=== PATIENT | female | born 1980 | race Caucasian/White ===

== ENCOUNTER 2019-06-30 10:58 | Outpatient (CLI) | payer OTHER, SELFPAY ==
--- NOTE | 2019-06-30 11:09 | EST_ITS ---
Patient Info Name: Lauren Hicks Age: 38 years : 1980 Gender: Female Ht: 64 in Wt: 180 lbs BSA: 1.95 m2 Exam Date: 06/30/2019 11:42 AM Exam Location: [facility] Stress Patient Status: Outpatient Admit Date: 06/30/2019 Staff Ordering Physician: Emmett Turner DO Attending Provider: Emmett Turner DO Exercise Technologist: Vera Fernando RDCS Exercise Physician: Emmett Turner DO Exam Type: CA stress test treadmill Study Info A treadmill exercise stress test was performed. Summary 1. 1. Negative Spenser exercise stress test for ischemic ST changes by ECG criteria. 2. 2. Good functional capacity, achieving 9 METs of workload. 3. 3. Appropriate HR response to exercise. 4. 4. Appropriate HR recovery at 1 minute post exercise. 5. 5. No imaging with stress testing. 6. 6. Patient informed of the above results. Protocol: Spenser Stress ECG Details Stage: REST Duration (min): 8 min : 10 sec Speed (mph): 0.0 Grade (%): 0 HR (bpm): 77 SBP (mmHg): 123 DBP (mmHg): 78 METS: --- Stage: REST Duration (min): 11 min : 1 sec Speed (mph): 0.0 Grade (%): 0 HR (bpm): 84 SBP (mmHg): 123 DBP (mmHg): 78 METS: --- Stage: STAGE 1 Duration (min): 1 min : 0 sec Speed (mph): 1.7 Grade (%): 10 HR (bpm): 111 SBP (mmHg): 123 DBP (mmHg): 78 METS: --- Stage: STAGE 1 Duration (min): 2 min : 0 sec Speed (mph): 1.7 Grade (%): 10 HR (bpm): 125 SBP (mmHg): 123 DBP (mmHg): 78 METS: --- Stage: STAGE 1 Duration (min): 3 min : 0 sec Speed (mph): 1.7 Grade (%): 10 HR (bpm): 124 SBP (mmHg): 168 DBP (mmHg): 88 METS: --- Stage: STAGE 2 Duration (min): 1 min : 0 sec Speed (mph): 2.5 Grade (%): 12 HR (bpm): 147 SBP (mmHg): 168 DBP (mmHg): 88 METS: --- Stage: STAGE 2 Duration (min): 2 min : 0 sec Speed (mph): 2.5 Grade (%): 12 HR (bpm): 164 SBP (mmHg): 201 DBP (mmHg): 94 METS: --- Stage: STAGE 2 Duration (min): 3 min : 0 sec Speed (mph): 2.5 Grade (%): 12 HR (bpm): 167 SBP (mmHg): 201 DBP (mmHg): 94 METS: --- Stage: STAGE 3 Duration (min): 1 min : 0 sec Speed (mph): 3.4 Grade (%): 14 HR (bpm): 178 SBP (mmHg): 201 DBP (mmHg): 94 METS: --- Stage: STAGE 3 Duration (min): 1 min : 0 sec Speed (mph): 3.4 Grade (%): 14 HR (bpm): 178 SBP (mmHg): 201 DBP (mmHg): 94 METS: --- Stage: RECOVERY Duration (min): 0 min : 59 sec Speed (mph): 0.0 Grade (%): 0 HR (bpm): 141 SBP (mmHg): 183 DBP (mmHg): 108 METS: --- Stage: RECOVERY Duration (min): 1 min : 59 sec Speed (mph): 0.0 Grade (%): 0 HR (bpm): 123 SBP (mmHg): 183 DBP (mmHg): 108 METS: --- Stage: RECOVERY Duration (min): 2 min : 59 sec Speed (mph): 0.0 Grade (%): 0 HR (bpm): 110 SB
== END 2019-06-30 10:59 | disposition home or self-care (01) ==
PROVIDERS: PCP Emergency Medicine; Visit Provider Internal Medicine Cardiovascular Disease
DX: R07.9 Chest pain, unspecified (principal)
CPT/HCPCS: 93017